=== PATIENT | female | born 1960 | race Caucasian/White ===

== ENCOUNTER 2021-01-30 10:42 | Observation (INO) ==
[2021-01-30] MEDS ORDERED: ceFAZolin VIAL 2 GM in NS 0.9% 100 ml BAG 100 ML IVPB ONE (12:57)
[2021-01-30] MEDS ORDERED: ceFAZolin 2 GM PREMIX 2 GM/50 ML BAG ONE (13:14)
[2021-01-30] MEDS ORDERED: Bupivacaine 0.25% EPI 200,000 30 ML SDV ONE (13:25)
[2021-01-30] MEDS ORDERED: Rocuronium 50 mg VIAL 10 mg/ml 5 ml VIAL (50 mg) ONE (14:01)
[2021-01-30] MEDS ORDERED: Midazolam 2 mg/2 ml VIAL 1 mg/ml 2 ml VIAL (2 mg) ONE (14:01)
[2021-01-30] MEDS ORDERED: Lidocaine 2% PF 5 ML VIAL ONE (14:01)
[2021-01-30] MEDS ORDERED: Propofol 10 MG/ML 20 ML BTL ONE ×2 (14:01→15:03)
[2021-01-30] MEDS ORDERED: fentaNYL 100 mcg/2 ml 50 MCG/ML VIAL ONE (14:01)
[2021-01-30] MEDS ORDERED: Ketamine HCL 50 mg/ml 10 ml VIAL (500 MG) ONE (14:41)
[2021-01-30] MEDS ORDERED: Phenylephrine 40 mcg/mL 10mL (400mcg) SYRINGE ONE (14:47)
[2021-01-30] MEDS ORDERED: Dexamethasone IV 4 MG/ML VIAL 1 ml VIAL ONE (14:53)
[2021-01-30] MEDS ORDERED: Levalbuterol HFA INHALER MDI ONE (14:56)
[2021-01-30] MEDS ORDERED: HYDROmorphone 1 MG/1 ML SYRINGE ONE (15:01)
[2021-01-30] MEDS ORDERED: Ondansetron 4 mg VIAL 2 MG/ML 2 ml VIAL ONE (15:29)
[2021-01-30] MEDS ORDERED: Metoclopramide 5 MG/ML VIAL (10 mg) ONE (16:30)
[2021-01-30] MEDS ORDERED: Succinylcholine 200 mg VIAL 20 mg/ml 10 ml VIAL (200 mg) ONE (16:30)
[2021-01-30] MEDS ORDERED: Acetaminophen IV 1 GM/100ML 1,000 MG/100 ML VIAL IVPB ONE (16:35)
[2021-01-30] MEDS ORDERED: diPHENhydraMINE IV 50 MG/ML 1 ml VIAL (BENADRYL) IV PRN (16:35)
[2021-01-30] MEDS ORDERED: Prochlorperazine 5 mg/ml 2 ml VIAL (10 mg) IV PRN (16:35)
[2021-01-30] MEDS ORDERED: Naloxone 0.4 mg VIAL 0.4 mg/ml 1 ml VIAL IV PRN (16:35)
[2021-01-30] MEDS ORDERED: HYDROcodone/ACETAMIN 5/325 mg TAB PO PRN (16:46)
[2021-01-30] MEDS ORDERED: Ondansetron 4 mg VIAL 2 MG/ML 2 ml VIAL IV PRN (16:47)
[2021-01-30] MEDS ORDERED: Lactated Ringers 1000 ml BAG 1,000 ML IV SCH (17:00)
[2021-01-30] MEDS ORDERED: Acetaminophen IV 1 GM/100ML 100 ML ONE (17:25)
[2021-01-30] MEDS ORDERED: Albuterol HFA INHALER 8 gm MDI INH PRN (18:23)
[2021-01-31] MEDS: HYDROcodone/ACETAMIN 5/325 mg TAB PO PRN ×2 (03:35→08:41)
[2021-01-31 07:49] VITALS: BP 102/63
== END 2021-01-31 11:12 | disposition home or self-care (01) ==
LOC: ED 10:42 → SSU 10:42
PROVIDERS: ADMIT Surgery; ATTEND Surgery